=== PATIENT | female | born 1950 | race Caucasian/White ===

== ENCOUNTER → 2019-12-09 | Outpatient (CLI) | payer OTHER | LOC: RAD 10:24 | DX: M43.27 Fusion of spine, lumbosacral region (principal); M43.17 Spondylolisthesis, lumbosacral region ==

== ENCOUNTER → 2019-12-31 | Outpatient (CLI) | payer OTHER ==
[2019-12-31 09:28] LABS: CREATININE 0.9 mg/dL (0.6-1.0)
== END ==
LOC: MRI 08:49
DX: M51.36 Other intervertebral disc degeneration, lumbar region (principal); M48.062 Spinal stenosis, lumbar region with neurogenic claudication; M43.26 Fusion of spine, lumbar region; M96.1 Postlaminectomy syndrome, not elsewhere classified